=== PATIENT | male | born 1980 | race Caucasian/White ===

== ENCOUNTER 2023-05-23 16:14 | Emergency (ER) | payer OTHER, SELFPAY ==
[2023-05-23 16:30] VITALS: BP 140/83; PULSE 100; RESP 18; TEMP 37; O2SAT 99
--- NOTE | 2023-05-23 17:34 | ED.GENADULT ---
HPI - General Adult General Chief complaint: Upper Respiratory Infection Stated complaint: Cough Time Seen by Provider: 05/23/23 17:35 Source: patient Mode of arrival: ambulatory Limitations: no limitations History of Present Illness HPI narrative: 42-year-old male presents to [facility] with complaints of cough with green phlegm, sore throat, post nasal drainage and fatigue for a few days, Patient denies any shortness of breath requests Amoxicillin for his symptoms. Patient reports that significant others had same symptoms and Amoxicillin resolved her symptoms. Patient states that he has not taken any OTC medications for his symptoms.Patient denies any known fevers, chills or body aches,does not want any testing. MD complaint: cough, green sputum, tiredness,post nasal drainage Onset (ago): day(s) (few) Severity: mild Treatments prior to arrival: none Related Data Allergies Allergy/AdvReac Type Severity Reaction Status Date / Time No Known Allergies Allergy Verified 05/23/23 16:42 Review of Systems Review of Systems: CONSTITUTIONAL: Denies malaise, chills, sweats, or fever. EYES: Denies visual changes, redness, or discharge. ENT: Reports rhinorrhea, congestion, sinus pain, no otalgia and positive for sore throat. CARDIOVASCULAR: Denies chest pain, palpitations, or edema. RESPIRATORY: Reports cough.? Denies dyspnea. GASTROINTESTINAL: Denies abdominal pain, nausea, vomiting, diarrhea SKIN: Denies rash or itching. MUSCULOSKELETAL: Denies myalgia. NEUROLOGIC: Denies headache. All systems reviewed & are unremarkable except as noted in HPI and below PMFSH Past Medical History Medical History (Updated 05/24/23 @ 21:20 by Birdie Martinez NP) Fractures Social History Social History (Updated 05/24/23 @ 21:15 by Birdie Martinez NP) Smoking packs per day: 0.5 Smoking cigarettes per day: 10.0 Smoking status: Current every day smoker Gender identity (if verbalized by the patient): Male Comments At time of signature, agree with nursing past medical, surgical, social and family history. There is no relevant family history pertinent to the presenting complaint Exam Narrative: GENERAL: Well-appearing, well-nourished, and in no acute distress. HEAD: Normocephalic EYES: PERRLA, conjunctivae clear ENT: Nares clear, turbinates edematous and erythematous, yellow discharge. Mucous membranes moist. TM pearly wilson with dull light reflex bilaterally; no tragal tenderness. Oropharynx erythematous without lesions. Tonsils not enlarged and without exudate, no drooling, no hoarseness, no trismus, uvula midline.post nasal drainage NECK: Supple. No lymphadenopathy CHEST: Clear to auscultation, breath sounds equal. No wheezing, rhonchi, rales, or stridor. No respiratory distress, speaks in full sentences.productive cough,SAO2 99% on room air HEART: Regular rate and rhythm. No murmur heard. SKIN: Warm, dry, no rash. NEURO: Alert and oriented x3. PSYCH: Normal mood and affect Course Course Emergency Course: Patient is aware of diagnosis, understands and agrees to treatment plan.? Anticipatory guidance given.? Patient agrees to follow-up as directed and is aware of reasons to seek care at the emergency department. Portions of this record may have been created with voice recognition software Level of Care: Express Care Visit Vital Signs Vital signs: Vital Signs Temperature 37.0 C 05/23/23 16:30 Pulse Rate 100 05/23/23 16:30 Respiratory Rate 18 05/23/23 16:30 Blood Pressure 140/83 05/23/23 16:30 Pulse Oximetry 99 05/23/23 16:30 Oxygen Delivery Room Air 05/23/23 16:30 Temperature 37.0 C 05/23/23 16:30 Pulse Rate 100 05/23/23 16:30 Respiratory Rate 18 05/23/23 16:30 Blood Pressure 140/83 05/23/23 16:30 Pulse Oximetry 99 05/23/23 16:30 Oxygen Delivery Room Air 05/23/23 16:30 Reviewed Medical Decision Making Differential Diagnosis Dif
== END 2023-05-23 17:45 | disposition home or self-care (01) ==
PROVIDERS: Emergency Provider Registered Nurse
DX: J06.9 Acute upper respiratory infection, unspecified (principal); F17.210 Nicotine dependence, cigarettes, uncomplicated
CPT/HCPCS: 99213; G0463